=== PATIENT | male | born 1950 | race Caucasian/White ===

== ENCOUNTER 2018-06-13 15:24 | Emergency (ER) | payer MEDICARE ==
[~2018-06-13] VITALS: Ht 167.6 cm; Wt 74.4 kg
[2018-06-13 16:55] LABS: MICROSCOPIC AUTO
[2018-06-13 16:56] LABS: CULTURE INDICATED? NO
[2018-06-13 17:55] VITALS: BP 177/91
== END 2018-06-13 18:03 | disposition home or self-care (01) ==
LOC: ED 16:06
DX: R33.9 Retention of urine, unspecified (principal); R10.30 Lower abdominal pain, unspecified; I10 Essential (primary) hypertension; E78.5 Hyperlipidemia, unspecified
CPT/HCPCS: 51702; 81001; 99284; 99285